=== PATIENT | female | born 1970 | race Caucasian/White ===

== ENCOUNTER 2022-08-06 20:05 | Emergency (ER) | payer SELFPAY ==
[2022-08-06 20:12] VITALS: BMI 32.9
[2022-08-06] MEDS ORDERED: IBUPROFEN 600 MG TABLET (FP) PO ONE ×2 (22:24→22:35)
[2022-08-06] MEDS ORDERED: ACETAMINOPHEN 500 MG TABLET (FP) PO ONE (22:24)
[2022-08-06] MEDS ORDERED: ONDANSETRON 4 MG TABLET PO ONE ×2 (22:24→22:35)
[2022-08-06] MEDS ORDERED: ACETAMINOPHEN 500 MG TABLET (FP) ONE (22:36)
[2022-08-06 22:50] LABS: BASO % 0.5 % (0-2.0); EOS % 0.4 % (0-4.5); HEMATOCRIT 40.1 % (32.4-45.2); HEMOGLOBIN 13.6 GM/dL (10.7-15.3); LYMPH % 34.1 % (8-40); MCH 28.2 pg (25.7-33.7); MCHC 33.8 g/dl (32.0-36.0); MEAN CELL VOLUME 83.5 fl (80-96); MEAN PLT VOLUME 7.3 fl (7.5-11.1); MONO % 11.5 % (3.8-10.2); NEUT % 53.5 % (42.8-82.8); PLATELET COUNT 217 10^3/uL (134-434); RBC 4.81 M/mm3 (3.60-5.2); RDW 13.7 % (11.6-15.6); WHITE BLOOD COUNT 5.4 K/mm3 (4.0-10.0)
[2022-08-06 23:12] LABS: EPI CELLS 13 /uL (0-25.1); HYALINE CASTS 0 /uL (0-3.1); PH,URINE 6.5 (5.0-8.0); URINE APPEARANCE CLEAR; URINE BACTERIA 775 /uL (0-1359); URINE BILIRUBIN NEGATIVE (NEGATIVE); URINE COLOR YELLOW; URINE GLUCOSE (UA) NEGATIVE (NEGATIVE); URINE KETONE NEGATIVE (NEGATIVE); URINE LEUK ESTERASE NEGATIVE (NEGATIVE); URINE NITRITE NEGATIVE (NEGATIVE); URINE PROTEIN NEGATIVE (NEGATIVE); URINE RBC 251 /uL (0-23.9); URINE UROBILINOGEN 0.2 mg/dL (0.2-1.0); URINE WBC 5 /uL (0-25.8)
[2022-08-06 23:30] LABS: BLOOD UREA NITROGEN 11.8 mg/dL (7-18); CALCIUM 8.6 mg/dL (8.5-10.1)
[2022-08-06 23:34] LABS: CREATININE 0.7 mg/dL (0.55-1.3)
[2022-08-07 01:44] VITALS: BP 115/74; PULSE 81; RESP 18; TEMP 98.6
[2022-08-07] MEDS ORDERED: AZITHROMYCIN 250 MG TABLET PO ONE (02:29)
[2022-08-07] MEDS ORDERED: AZITHROMYCIN 250 MG TABLET ONE ×2 (02:33→02:34)
== END 2022-08-07 02:36 | disposition home or self-care (01) ==
LOC: JER 20:05
DX: J18.9 Pneumonia, unspecified organism (principal)
CPT/HCPCS: 36415; 74176-TC; 80048; 81003; 85025; 87086; 87186; 99284-25